=== PATIENT | male | born 1980 | race Caucasian/White ===

== ENCOUNTER 2024-12-16 15:38 | Outpatient (AMB) | payer OTHER, SELFPAY ==
[2024-12-16 15:44] VITALS: BP 132/72; PULSE 84; O2SAT 97; BMI 46.6
--- NOTE | 2024-12-16 15:44 | A.OFFVIS_ITS ---
Vital Signs 12/16/24 15:44 Height 5 ft 8 in Weight 306 lb 3.553 oz BMI 46.6 BP 132/72 Blood Pressure Location Rt brachial Position Sitting Pulse 84 Pulse Source Pulse Oximeter Pulse Oximetry (%) 97 Oxygen Delivery Method Room Air Intake Visit Reasons: Obesity Intake Note: New patient externally referred by PCP for Obesity. Hospitality Recruiter Required: Yes Hospitality Recruiter Language: Polish Hospitality Recruiter Services: Hospitality Recruiter Offered & Declined Hospitality Recruiter Name: Spouse will Interpret Information Interpreted: non-clinical & clinical Accompanied by: Spouse Allergies No Known Allergies Allergy (Verified 12/16/24 15:51) Medication List - Last Reconciled 12/16/24 by Jermaine Sanchez MD cholecalciferol (vitamin D3) 1,250 mcg PO QWEEK cyanocobalamin (vitamin B-12) 1,000 mcg PO DAILY metformin 1,000 mg PO BID HPI Comments Details: The patient is a 44-year-old male presenting with weight management and evaluation of prediabetes. He reports a sudden weight gain over the past year, with his weight increasing from an average of 240-260 pounds to 280 pounds. He attempted dietary changes, including reducing carbohydrate intake, but has not followed a structured diet plan. The patient has a history of prediabetes, with recent lab results showing an HbA1c of 5.9%. He has been taking metformin for insulin resistance and reports no adverse effects from the medication. There is a family history of diabetes, as his mother is diabetic. The patient reports a diagnosis of sleep apnea but admits to non-compliance with CPAP therapy. He experiences significant fatigue, which he attributes to his untreated sleep apnea. Recently, the patient noticed a lump on his skin, which was suspected to be a sebaceous cyst. The lump has since resolved spontaneously. - Metformin: Taken for insulin resistance, no adverse effects reported. [facility] Medical History (Updated 12/16/24 @ 16:04 by Jermaine Sanchez MD) Obesity Surgical History No pertinent past surgical history Family History Mother Diabetes Social History Alcohol intake: never Patient Tobacco Use Status: Never used Tobacco Physical Exam Vital Signs: BMI result Body Mass Index 46.6 Const Other: Absence of cushingoid features. Thyroid gland is normal size weighs about 15 g. There are no thyroid nodules palpable Assessment & Plan Assessment & Plan (1) Obesity: Code(s): E66.9 - Obesity, unspecified Category: Medical Plan: This is a 44-year-old male with a history of obesity. He does have a history of pre diabetes. No other clear underlying endocrine etiology 1. Obesity The patient has experienced significant weight gain over the past year, reaching 280 pounds. Lifestyle modifications, including dietary changes and increased physical activity, are recommended. Consideration of pharmacotherapy for weight loss, such as GLP-1 receptor agonists, was discussed, with attention to insurance coverage challenges. 2. Prediabetes The patient's HbA1c is 5.9%, indicating prediabetes. Continued use of metformin is advised to manage insulin resistance. Regular monitoring of blood glucose levels and HbA1c is recommended to prevent progression to type 2 diabetes. 3. Insulin resistance The patient is currently on metformin, which he tolerates well. Lifestyle interventions, including dietary modifications and exercise, are emphasized to improve insulin sensitivity. 4. Sleep apnea The patient reports non-compliance with CPAP therapy, contributing to fatigue. Reinforcement of CPAP use and follow-up with a sleep specialist are advised to address sleep apnea and associated symptoms. During the visit, we discussed the patient's significant weight gain and the potential use of GLP-1 receptor agonists for weight management, considering the challenges with insurance coverage. We reviewed the importance of lifestyle modifications, including dietary changes and regular exercise, to address obesity and insulin resistance. The patient was advised to continue metformin for prediabetes and to monitor blood glucose levels regularly. We emphasized the need for compliance with CPAP therapy to manage sleep apnea and reduce fatigue. - Follow a balanced diet with reduced carbohydrate intake. - Engage in regular physical activity, aiming for at least 30 minutes a day. - Continue taking metformin as prescribed. - Use CPAP machine consistently to manage sleep apnea. - Monitor blood glucose levels regularly. - Schedule follow-up with a sleep specialist. - The patient had an opportunity to ask questions regarding treatment plan. The patient expressed understanding and agreement with the above treatment plan. Patient was informed and verbally consented to the use of an ambient scribe for clinic note documentation during this visit. Orders: Referrals Nutrition/Dietitian Referral E66.9 - Obesity, unspecified Coding Level of Care Code New Pt Level 4 (49718) Diagnoses Obesity E66.9
== END 2024-12-17 08:19 | disposition home or self-care (01) ==
LOC: HO.ENCR 15:39
PROVIDERS: PCP Internal Medicine; Visit Provider Internal Medicine Endocrinology, Diabetes & Metabolism
DX: E66.9 Obesity, unspecified (principal)
CPT/HCPCS: 99204

== ENCOUNTER → 2024-12-16 15:38 | Outpatient (BNVA) | payer OTHER, SELFPAY | PROVIDERS: PCP Internal Medicine; Visit Provider Internal Medicine Endocrinology, Diabetes & Metabolism | DX: E66.9 Obesity, unspecified (principal) | CPT/HCPCS: 99202 ==

== ENCOUNTER 2025-03-25 16:30 | Outpatient (AMB) | payer OTHER, SELFPAY ==
[2025-03-25 16:31] VITALS: BP 128/72; PULSE 77; O2SAT 97; BMI 46.8
--- NOTE | 2025-03-25 16:31 | A.OFFVIS_ITS ---
Vital Signs 03/25/25 16:31 Height 5 ft 8 in Weight 307 lb 12.245 oz BMI 46.8 BP 128/72 Blood Pressure Location Lt brachial Position Sitting Pulse 77 Pulse Source Pulse Oximeter Pulse Oximetry (%) 97 Oxygen Delivery Method Room Air Intake Visit Reasons: F/u Obesity Intake Note: Patient presents for follow up on obesity. Multimedia Services Manager Required: Yes Multimedia Services Manager Language: Lao Multimedia Services Manager Services: Multimedia Services Manager Offered & Declined Allergies No Known Allergies Allergy (Verified 03/25/25 16:38) HPI Comments Details: The patient is a 44-year-old male presenting with weight management and evaluation of prediabetes. He reports a sudden weight gain over the past year, with his weight increasing from an average of 240-260 pounds to 280 pounds. He attempted dietary changes, including reducing carbohydrate intake, but has not followed a structured diet plan. The patient has a history of prediabetes, with recent lab results showing an HbA1c of 5.9%. He has been taking metformin for insulin resistance and reports no adverse effects from the medication. There is a family history of diabetes, as his mother is diabetic. The patient reports a diagnosis of sleep apnea but admits to non-compliance with CPAP therapy. He experiences significant fatigue, which he attributes to his untreated sleep apnea. Recently, the patient noticed a lump on his skin, which was suspected to be a sebaceous cyst. The lump has since resolved spontaneously. - Metformin: Taken for insulin resistance, no adverse effects reported. [facility] Medical History (Updated 03/25/25 @ 17:30 by Jermaine Sanchez MD) Obesity Surgical History No pertinent past surgical history Family History Mother Diabetes Social History Alcohol intake: never Patient Tobacco Use Status: Never used Tobacco Physical Exam Vital Signs: Last Vital Signs Pulse 77 03/25/25 16:31 BP 128/72 03/25/25 16:31 Pulse Ox 97 03/25/25 16:31 Oxygen Delivery Method Room Air 03/25/25 16:31 BMI result Body Mass Index 46.8 Assessment & Plan Assessment & Plan (1) Obesity: Code(s): E66.9 - Obesity, unspecified Category: Medical Qualifiers: Obesity type: due to excess calories Plan: This is a 44-year-old male with a history of obesity. He does have a history of pre diabetes. No other clear underlying endocrine etiology We will send workup for secondary causes including TSH, free T4, HbA1c, 24 hour urine for free cortisol and creatinine at patient's request. Also told patient to contact sleep Medicine for follow-up visit to get the sleep apnea treated which may be a factor inhibiting weight loss. We will also send to barometers calibrator. Also attempted to get prescription covered for Zepbound 2.5 mg Q weekly. Went over side effects of Zepbound including but not limited to nausea, vomiting rare risk of pancreatitis. We will have patient follow up in 4 months' time - Orders: Orders Free T4 (Free Thyroxine) 03/25/25 E66.9 - Obesity, unspecified Hemoglobin A1c 03/25/25 E66.9 - Obesity, unspecified Creatinine, 24 Hr Group 03/25/25 E66.9 - Obesity, unspecified Thyroid Stimulating Hormone 03/25/25 E66.9 - Obesity, unspecified Cortisol, Free 24Hr Urine 03/25/25 E66.9 - Obesity, unspecified Medications: New Zepbound (tirzepatide (weight loss)) for 4 weeks 2.5 mg (0.5 mL) subcut QWEEK 2 mL 4RF NS Coding Level of Care Code New Pt Level 4 (17798) Diagnoses Obesity E66.9 Obesity type: due to excess calories
== END 2025-03-26 08:38 | disposition home or self-care (01) ==
LOC: HO.ENCR 16:30
PROVIDERS: PCP Internal Medicine; Visit Provider Internal Medicine Endocrinology, Diabetes & Metabolism
DX: E66.9 Obesity, unspecified (principal); Z68.42 Body mass index [BMI] 45.0-49.9, adult
CPT/HCPCS: 99214

== ENCOUNTER → 2025-03-25 16:30 | Outpatient (BNVA) | payer OTHER, SELFPAY | PROVIDERS: PCP Internal Medicine; Visit Provider Internal Medicine Endocrinology, Diabetes & Metabolism | DX: R73.03 Prediabetes (principal); E66.9 Obesity, unspecified | CPT/HCPCS: 99212 ==

== ENCOUNTER 2025-04-08 09:50 | Outpatient (AMB) | payer OTHER, SELFPAY ==
[2025-04-08 10:41] VITALS: BMI 45.7
--- NOTE | 2025-04-08 10:41 | MHC.AMNUTRGE ---
VS Expanded 04/08/25 10:41 04/08/25 10:45 Height 5 ft 8 in 5 ft 8 in Weight 300 lb 4.313 oz 300 lb BMI 45.7 45.6 Intake Visit Reasons: obesity Allergies No Known Allergies Allergy (Verified 03/25/25 16:38) Nutrition Presentation Details: Pt presents for MNT for obesity Pt reports typically having 1-2 large meals/day Now is slowly working on reducing on amount of bread consumed Pt has multiple questions regarding macros, gets overwhelmed with information. PLC-Esyqlzi-Wq.Jeor Equation Height: 5 ft 8 in Weight: 300 lb Resting Metabolic Rate: 2217.60 Calculated Activity Level: Sedentary Calories Needed to Maintain Weight: 2661.12 Diagnosis Nutrition problem #1: overweight/obesity As related to (etiology) #1: diagnosis As evidenced by (sign/symptom) #1: knowledge deficit of diet [facility] Medical History (Updated 03/25/25 @ 17:30 by Jermaine Sanchez MD) Obesity Surgical History No pertinent past surgical history Family History Mother Diabetes Social History Alcohol intake: never Patient Tobacco Use Status: Never used Tobacco Assessment & Plan Assessment & Plan (1) Obesity: Code(s): E66.9 - Obesity, unspecified Category: Medical Qualifiers: Obesity type: due to excess calories Plan: current wt:136 kg ( 04/03 ) est kcal needs as per MSJ: 2600 est protein needs as per 1 -1.2g/kg BW: 158 est fluid needs as per 30 ml/kg BW: 4000 Recommended fiber > 12 g /day and gradually increase up to 25-28 g /day or as tolerated Nutrition topics discussed : Reviewed (R), Pt verbalized understanding (V) , not applicable (N/A) R, : Healthy Plate Method Concept: R, : Carbohydrates: food sources of carbohydrates, relationship of carbohydrates to blood glucose, fatty liver GI health. Recommended total amount of carbohydrates per meals and snack. Differences between simple carbohydrates and complex carbohydrates R, : Lean protein foods including vegan , vegetarian sources of protein. Benefits of protein (including but not limited to healing, nutritional value , benefits in weight loss, glucose control R, V, N/A: Fats : Source of fats, benefits of fats. Difference between saturated and unsaturated fats. Saturated fats and its contribution to inflammation R, V, N/A: Fiber: food sources and role of fiber in the diet (including but not limited to its role as a prebiotic, benefits in constipation, role in IBS , role in glucose control and cholesterol level) R, V, N/A: Hydration: role of hydration and prevention of dehydration or over hydration. Foods and water content. R, V, N/A: Vitamins and Minerals in foods and supplements R, V, N/A: Interpreting food labels, including serving size, macronutrients, vitamins, minerals, allergens, ingredient list , % daily value Patient Instructions: Keep track of your calories (must measure food portions to have best estimate of caloric intake) Reduce total calories to less than 2600 per day see meal plan ideas as reference Coding Level of Care Code Nutr Indiv Intake (13076) Diagnoses Obesity E66.9 Obesity type: due to excess calories
[2025-04-19 12:15] VITALS: BMI 45.6
== END 2025-04-08 11:32 | disposition home or self-care (01) ==
LOC: HO.ENCR 09:51
PROVIDERS: PCP Internal Medicine; Visit Provider Dietitian, Registered
DX: E66.9 Obesity, unspecified (principal)

== ENCOUNTER → 2025-04-08 09:50 | Outpatient (BNVA) | payer OTHER, SELFPAY | PROVIDERS: PCP Internal Medicine; Visit Provider Dietitian, Registered | DX: E66.9 Obesity, unspecified (principal); Z68.42 Body mass index [BMI] 45.0-49.9, adult | CPT/HCPCS: 97802 ==